=== PATIENT | male | born 1960 | race Caucasian/White ===

== ENCOUNTER 2018-08-07 08:31 | Observation (INO) | payer BC, OTHER ==
[~2018-08-07] VITALS: Ht 182.9 cm; Wt 125.2 kg
[~2018-08-07 08:31] MED LIST: INDOMETHACIN PO; LISINOPRIL PO
[2018-08-07] MEDS ORDERED: SODIUM CHLORIDE 0.9% 1000ML 1,000 ML IV STA (09:03)
[2018-08-07] MEDS ORDERED: ENOXAPARIN SODIUM INJ 100 MG/ML SYR SC STA (09:13)
[2018-08-07] MEDS ORDERED: DILTIAZEM HCL 5 MG/ML 5 ML VIAL IV ONE (09:15)
[2018-08-07] MEDS ORDERED: ASPIRIN 81 MG CHEW TAB PO ONE (09:15)
[2018-08-07] MEDS ORDERED: DILTIAZEM HCL VIAL 5 ML ONE (09:17)
[2018-08-07 09:43] LABS: BASOPHILS # (AUTO) 0.1 (0.0-0.1); BASOPHILS % 0.5 % (0.0-1.0); EOSINOPHILS # (AUTO) 0.4 (0.0-0.4); EOSINOPHILS % 3.4 % (0.0-6.0); HEMATOCRIT 45.7 % (38.2-49.6); HEMOGLOBIN 15.5 g/dL (14.0-18.0); LYMPHOCYTES # (AUTO) 4.6 (1.0-3.2); LYMPHOCYTES % 38.1 % (18.0-39.1); MEAN CORPUSCULAR HEMOGLOBIN 33.2 pg (28-32); MEAN CORPUSCULAR HGB CONC 33.9 g/dL (31-35); MEAN CORPUSCULAR VOLUME 97.9 fL (81-99); MONOCYTES # (AUTO) 0.6 (0.2-0.8); MONOCYTES % 4.6 % (4.4-11.3); NEUTROPHILS # (AUTO) 6.4 (2.1-6.9); NEUTROPHILS % 52.9 % (38.7-80.0); PLATELET COUNT 192 x10e3/uL (140-360); RED BLOOD COUNT 4.67 x10e6/uL (4.3-5.7); RED CELL DISTRIBUTION WIDTH 12.9 % (11.7-14.4)
[2018-08-07 10:01] LABS: INR 1.08; PROTHROMBIN TIME 13.2 seconds (11.9-14.5)
[2018-08-07 10:02] LABS: PARTIAL THROMBOPLASTIN TIME 27.6 seconds (23.8-35.5)
[2018-08-07 10:04] LABS: ALANINE AMINOTRANSFERASE 21 IU/L (0-55); ALBUMIN 3.6 g/dL (3.5-5.0); ALBUMIN/GLOBULIN RATIO 1.3 (0.8-2.0); ALKALINE PHOSPHATASE 65 IU/L (40-150); BLOOD UREA NITROGEN 20 mg/dL (7-26); BUN/CREATININE RATIO 17 (6-25); CARBON DIOXIDE 22 mmol/L (22-29); CHLORIDE 108 mmol/L (98-107); CREATINE KINASE 98 IU/L (30-200); CREATININE, SERUM 1.17 mg/dL (0.72-1.25); EST GLOMERULAR FILTRATION RATE > 60 ML/MIN (60-); GLUCOSE 122 mg/dL (74-118); SODIUM 140 mmol/L (136-145)
[2018-08-07 10:24] LABS: THYROID STIMULATING HORMONE 1.301 uIU/mL (0.350-4.940)
--- NOTE | 2018-08-07 11:35 | Diagnostic Imaging Report ---
Examination: Single AP view of the chest. COMPARISON: None. INDICATION: Elevated heart rate, shortness of breath IMPRESSION: 1. Lines and Tubes: None 2. Lungs are grossly clear. No consolidation or effusion. 3. Cardiomediastinal silhouette is normal. Pulmonary vasculature is normal. 4. No acute bony abnormalities. Signed by: Dr. Sergio Villatoro M.D. on 08/07/2018 11:31 AM
--- NOTE | 2018-08-07 13:01 | Diagnostic Imaging Report ---
EXAMINATION: CT of the chest with contrast, PE protocol. TECHNIQUE: Spiral CT images of the chest were performed from the lung apices through the level of the adrenal glands after the IV administration of cc of Omnipaque 300. Thin section reconstructions were obtained with special concentration on the pulmonary arteries. Coronal and sagittal reformatted images were obtained. COMPARISON: Portable chest 08/07/2018 CLINICAL HISTORY:-Heart rate, shortness of breath DISCUSSION: Exam available for interpretation at 13:00 hours Lungs: No filling defects are identified in the main, right or left pulmonary arteries to their segmental and subsegmental levels, to suggest pulmonary embolism. No consolidation, pulmonary masses or nodules. Linear subsegmental atelectasis versus scarring in the lingula (series 2, image 88 sagittal image 127). Airways: Airways are clear, without other bronchial lesions Pleura: <There is no evidence of pleural effusion or pneumothorax.> Heart and mediastinum: Thyroid is unremarkable. Mild cardiomegaly. Atherosclerotic calcification of the coronary arteries and thoracic aorta. The aorta is nonaneurysmal. Main pulmonary artery is normal in caliber. Lymph nodes: No mediastinal, hilar or axillary adenopathy. Abdomen: The visualized parts of the upper abdomen show unremarkable liver, spleen, pancreas, adrenal glands and kidneys. Bones and soft tissues: No aggressive lytic lesions. Degenerative disc changes in the thoracic spine. Soft tissues are unremarkable. IMPRESSION: 1. No CT evidence of pulmonary embolism. 2. Linear subsegmental atelectasis versus scarring in the lingula. No consolidation, masses or effusion. Signed by: Dr. Sergio Villatoro M.D. on 08/07/2018 12:58 PM
[2018-08-07] MEDS ORDERED: FAMOTIDINE 20 MG TAB PO SCH (15:00)
[2018-08-07] MEDS ORDERED: DILTIAZEM HCL 5 MG/ML 5 ML VIAL IV PRN (15:00)
[2018-08-07] MEDS ORDERED: ONDANSETRON HCL INJ 2 MG/ML VIAL IV PRN (15:00)
[2018-08-07] MEDS ORDERED: AMIODARONE HCL 100 ML IV ONE (15:51)
[2018-08-07] MEDS ORDERED: AMIODARONE 900MG 500 ML IV ONE (15:51)
[2018-08-07] MEDS ORDERED: AMIODARONE HCL 900 MG in DEXTROSE 5% 500ML 500 ML IV ONE (16:00)
[2018-08-07] MEDS ORDERED: AMIODARONE HCL 150MG 100 ML IV ONE (16:00)
[2018-08-07 16:09] LABS: CHOL/HDL RATIO 4.7 (3.9-4.7)
[2018-08-07 16:13] LABS: FREE THYROXINE INDEX 2.3297 (1.4-3.8)
[2018-08-07] MEDS ORDERED: IOPAMIDOL 370 MG/ML 200 ML INFUS..BTL INJ ONE (16:21)
[2018-08-07] MEDS ORDERED: SODIUM CHLORIDE 0.9% 50ML 50 ML ONE (16:21)
[2018-08-07] MEDS: APIXABAN 5 MG TABLET PO SCH (16:40)
[2018-08-07 17:36] LABS: CREATINE KINASE MB 1.7 ng/mL (0-5.0)
--- NOTE | 2018-08-07 20:27 | History and Physical ---
This is a 66-year-old gentleman with a history of high heart rate. HISTORY OF PRESENT ILLNESS: This is Mr. Jackson, who came to his primary care physician yesterday with a heart rate of 120 with AFib. Patient was referred to go to the emergency room, but he did not go, he had to do some errands. Came in today with heart rate of 160 and was admitted to the hospital, was started on amiodarone and cardiology consult was done. The patient has never had several symptoms before. PAST MEDICAL HISTORY: History of hypertension. SURGICAL HISTORY: History of back surgeries, meniscal surgeries, knee surgeries, and a traumatic abdominal laparotomy. MEDICATION: He only takes lisinopril. ALLERGIES: NO KNOWN ALLERGIES. SOCIAL HISTORY: No recent travel, no EtOH, no IV drug abuse. Never a smoker. REVIEW OF SYSTEMS: Negative for chest pain. No shortness of breath. Positive for palpitation. No nausea, vomiting, diarrhea, no constipation, no rectal bleeding, no hematochezia, no hematemesis. No diplopia, no blurry vision. EXAMINATION GENERAL: Patient is alert and oriented times 2. HEENT: Normocephalic, atraumatic. At this time, he is on an amiodarone drip. VITALS: Heart rate is about 181. CVS: S1 and S2 regular. ABDOMEN: Nontender, nondistended. EXTREMITIES: No clubbing, no cyanosis, no edema. Positive for scar on the left upper quadrant. LABORATORY VALUES: Initial white count is 12,000. Chemistries, sodium is 140, BUN of 20, creatinine of 1.17, glucose 122. BNP is 119. TSH is 1.30. LDL was 148. IMAGING STUDIES: CT of the chest was done, which shows no CT evidence of pulmonary embolism, linear subsegmental atelectasis and chest x-ray was also normal. ASSESSMENT: Atrial fibrillation with rapid ventricular response. The patient is on amiodarone drip. Will continue monitor. He has been started on apixaban. Rate control has been achieved. Possibly will change into beta-blockade. Thyroid has been normal. Further recommendation per clinical course. Cardiology has been consulted and will continue monitor the patient. Job#: [id number] CQ
[2018-08-07] MEDS ORDERED: ENOXAPARIN SODIUM INJ 100 MG/ML SYR SC SCH (21:30)
--- NOTE | 2018-08-07 22:44 | Consultation ---
DATE OF CONSULTATION: August 07, 2018 INDICATION: Atrial flutter. Mr. Jackson is a 58-year-old gentleman without any medical problems besides hypertension, who comes in complaining of fast heart rate and palpitation. She was found to be in atrial flutter at the time of admission, heart rate of 154. He was given Cardizem intravenously with reduction of his heart rate to 104. He continues to remain in atrial flutter. He denies any chest pain or shortness of breath. PAST MEDICAL HISTORY: Hypertension. SOCIAL HISTORY: Patient smokes approximately 1/2 pack of tobacco cigarettes a day. DRUG ALLERGIES: INCLUDE, PLASTIC TAPE, CODEINE, AND LATEX. HOME MEDICATION: Lisinopril. REVIEW OF SYSTEMS: Negative except as dictated in the history of present illness. PHYSICAL EXAMINATION VITALS: Afebrile. Heart rate 83. Blood pressure 113/74. O2 sats 98%. CARDIOVASCULAR: Irregular rhythm. Systolic murmur. LUNGS: Clear to auscultation bilaterally. ABDOMEN: Soft, mildly distended, and 1+ edema. Pedal pulses are 2+. WBC count 12,000, hemoglobin 15.5. Serum creatinine is normal. BNP is 1.9. Cardiac enzymes are negative. TSH is 1.3. Chest CT shows no acute abnormality. ASSESSMENT: Atrial flutter with rapid ventricular response. RECOMMENDATION: Attempt for chemical cardioversion with intravenous amiodarone, as well as oral calcium channel porter, anticoagulation with Eliquis 5 mg twice daily. Echocardiogram has been obtained. Patient should be maintained on telemetry for the next 24 hours. Following which, he may be discharged with close followup in the office and definitive therapy for his atrial flutter. I thank Dr. Forrester for this consultation. Job#: [id number]
[2018-08-08 05:06] LABS: BASOPHILS # (AUTO) 0.1 (0.0-0.1); BASOPHILS % 0.6 % (0.0-1.0); EOSINOPHILS # (AUTO) 0.4 (0.0-0.4); EOSINOPHILS % 3.7 % (0.0-6.0); HEMATOCRIT 40.5 % (38.2-49.6); HEMOGLOBIN 13.6 g/dL (14.0-18.0); LYMPHOCYTES # (AUTO) 4.2 (1.0-3.2); LYMPHOCYTES % 39.2 % (18.0-39.1); MEAN CORPUSCULAR HEMOGLOBIN 32.9 pg (28-32); MEAN CORPUSCULAR HGB CONC 33.6 g/dL (31-35); MEAN CORPUSCULAR VOLUME 98.1 fL (81-99); MONOCYTES # (AUTO) 0.6 (0.2-0.8); MONOCYTES % 5.4 % (4.4-11.3); NEUTROPHILS # (AUTO) 5.5 (2.1-6.9); NEUTROPHILS % 50.7 % (38.7-80.0); PLATELET COUNT 85 x10e3/uL (140-360); RED BLOOD COUNT 4.13 x10e6/uL (4.3-5.7)
[2018-08-08 05:29] LABS: ANION GAP 11.5 mmol/L (8-16); BLOOD UREA NITROGEN 16 mg/dL (7-26); BUN/CREATININE RATIO 15 (6-25); CALCIUM 8.2 mg/dL (8.4-10.2); CARBON DIOXIDE 20 mmol/L (22-29); CHLORIDE 111 mmol/L (98-107); CHOL/HDL RATIO 4.9 (3.9-4.7); CHOLESTEROL 185 MD/DL (0-199); CREATININE, SERUM 1.05 mg/dL (0.72-1.25); EST GLOMERULAR FILTRATION RATE > 60 ML/MIN (60-); GLUCOSE 133 mg/dL (74-118); HDL CHOLESTEROL 38 MG/DL (40-60); LDL CHOLESTEROL 126 MG/DL (60-130); MAGNESIUM 2.3 MG/DL (1.3-2.1); POTASSIUM 4.5 mmol/L (3.5-5.1); SODIUM 138 mmol/L (136-145); TRIGLYCERIDES 103 MG/DL (0-149)
[2018-08-08] MEDS: APIXABAN 5 MG TABLET PO SCH (08:42)
[2018-08-08] MEDS ORDERED: DILTIAZEM HCL 120 MG CAP CD PO SCH ×2 (09:00)
[2018-08-08] MEDS ORDERED: FAMOTIDINE 20 MG TAB PO SCH (09:00)
[2018-08-08] MEDS ORDERED: ASPIRIN 81 MG ENTERIC COATED PO SCH (09:00)
[2018-08-08 09:23] LABS: CLARITY,URINE CLEAR (CLEAR); COLOR,URINE YELLOW (YELLOW)
[2018-08-08 09:24] LABS: BILIRUBIN,URINE NEGATIVE (NEGATIVE); KETONES,URINE NEGATIVE (NEGATIVE); LEUKOCYTE ESTERASE ,URINE NEGATIVE (NEGATIVE); NITRITE,URINE NEGATIVE (NEGATIVE); PROTEIN,URINE DIPSTICK NEGATIVE (NEGATIVE); URINE UROBILINOGEN 0.2 mg/dL (0.2 - 1)
[2018-08-08 09:37] VITALS: BP 124/77
[2018-08-08 09:44] LABS: EPITHELIAL CELLS,URINE RARE /LPF; MUCUS,URINE MODERATE (RARE); RBC,URINE 0-5 /HPF (0-5); WBC,URINE (MAN) 0-5 /HPF (0-5)
--- NOTE | 2018-08-08 09:53 | Progress Note ---
DATE: August 08, 2018 CARDIOLOGY PROGRESS NOTE Mr. Jackson feels well. He denies any chest pain or shortness of breath. He is laying comfortably in bed in sinus rhythm. PHYSICAL EXAMINATION VITAL SIGNS: Afebrile, heart rate 71, blood pressure 123/74, O2 sat is 97%. CARDIOVASCULAR: Regular rhythm. No murmurs or gallops. LUNGS: Clear to auscultation bilaterally. ABDOMEN: Soft. Bowel sounds heard adequately. Telemetry shows sinus rhythm. CARDIOVASCULAR MEDICATIONS: Reviewed. LABS: Reviewed. ASSESSMENT: Atrial flutter with conversion to sinus rhythm. PLAN: The patient is stable for discharge from a cardiac standpoint. He will be on apixaban 5 mg b.i.d., amiodarone 200 mg b.i.d. and Cardizem CD 120 mg a day. He will follow up with me in the office in the next 1-[address] Early for this consultation. Job#: [id number] SD
== END 2018-08-08 09:50 | disposition home or self-care (01) ==
LOC: ER 08:31 → ERHOLD 16:07 → UNDOADMOB 16:07 → ERHOLD 16:29
PROVIDERS: ADMIT Internal Medicine; ATTEND Internal Medicine
DX: I48.92 Unspecified atrial flutter (principal); R53.1 Weakness; Z91.040 Latex allergy status; I12.9 Hypertensive chronic kidney disease with stage 1 through stage 4 chronic kidney disease, or unspecified chronic kidney disease; Z88.5 Allergy status to narcotic agent; Z91.048 Other nonmedicinal substance allergy status; N18.9 Chronic kidney disease, unspecified
CPT/HCPCS: 36415; 71045; 71260; 80048; 80053; 80061; 81001; 82550; 82553; 83735; 83880; 84436; 84443; 84479; 84484; 85025; 85379; 85610; 85730; 87086; 93005; 99284; J1650; J7030; J7060; Q9967; G0378

== ENCOUNTER 2019-03-30 14:04 | Emergency (ER) | payer BC, OTHER ==
[~2019-03-30] VITALS: Ht 182.9 cm; Wt 125.2 kg
--- OUTSIDE RECORDS SUMMARY | 2019-03-30 14:08 | XMS REPORT ---
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 Allergies, Adverse Reactions, Alerts Allergy Name Allergy Type Status Severity Reaction(s) Onset Date Inactive Date Treating Clinician Comments codeine DA Active MO 2018-09-16 00:00:00 codeine DA Active MO 2018-09-14 00:00:00 adhesive tape DA Active [place] 2018-09-14 00:00:00 codeine DA Active U 2012-09-07 00:00:00 Medications This patient has no known medications. Results Test Description Test Time Test Comments Text Results Atomic Results Result Comments CT CHEST W 2018-08-07 12:51:00 [place] [id number] Patient Name: HANNA SALGADO MR #: [id number] : 1960 Age/Sex: 58/M Req #: [id number] Adm Physician: Ordered by: JOSE GARDNER MD Report #: [id number] Location: ER Room/Bed: Procedure: [id number] CT/CT CHEST W Exam Date: 08/07/18 Exam Time: 1151 REPORT STATUS: Signed EXAMINATION: CT of the chest with contrast, PE protocol. TECHNIQUE: Spiral CT images of the chest were performed from the lung apices through the level of the adrenal glands after the IV administration of cc of Omnipaque 300. Thin section reconstructions were obtained with special concentration on the pulmonary arteries. Coronal and sagittal reformatted images were obtained. COMPARISON: Portable chest 08/07/2018 CLINICAL HISTORY:-Heart rate, shortness of breath DISCUSSION: Exam available for interpretation at 13:00 hours Lungs: No filling defects are identified in the main, right or left pulmonary arteries to their segmental and subsegmental levels, to suggest pulmonary embolism. No consolidation, pulmonary masses or nodules. Linear subsegmental atelectasis versus scarring in the lingula (series 2, image 88 sagittal image 127). Airways: Airways are clear, without other bronchial lesions Pleura: <There is no evidence of pleural effusion or pneumothorax.> Heart and mediastinum: Thyroid is unremarkable. Mild cardiomegaly. Atherosclerotic calcification of the coronary arteries and thoracic aorta. The aorta is nonaneurysmal. Main pulmonary artery is normal in caliber. Lymph nodes: No mediastinal, hilar or axillary adenopathy. Abdomen: The visualized parts of the upper abdomen show unremarkable liver, spleen, pancreas, adrenal glands and kidneys. Bones and soft tissues: No aggressive lytic lesions. Degenerative disc changes in the thoracic spine. Soft tissues are unremarkable. IMPRESSION: 1. No CT evidence of pulmonary embolism. 2. Linear subsegmental atelectasis versus scarring in the lingula. No consolidation, masses or effusion. Signed by: Dr. Gary Villatoro M.D. on 08/07/2018 12:58 PM Dictated By: GARY VILLATORO MD [id number] Transcribed By: REJI on 08/07/18 1258 COPY TO: JOSE GARDNER MD CHEST SINGLE (PORTABLE) 2018-08-07 11:31:00 [place] [address] Patient Name: HANNA SALGADO MR #: [id number] : 1960 Age/Sex: 58/M Req #: [id number] Adm Physician: Ordered by: JOSE GARDNER MD Report #: [id number] Location: ER Room/Bed: Procedure: [id number] DX/CHEST SINGLE (PORTABLE) Exam Date: 08/07/18 Exam Time: 932 REPORT STATUS: Signed Examination: Single AP view of the chest. COMPARISON: None. INDICATION: Elevated heart rate, shortness of breath IMPRESSION: 1. Lines and Tubes: None 2. Lungs are grossly clear. No consolidation or effusion. 3. Cardiomediastinal silhouette is normal. Pulmonary vasculature is normal. 4. No acute bony abnormalities. Signed by: Dr. Gary Villatoro M.D. on 08/07/2018 11:31 AM Dictated By: GARY VILLATORO MD 1131 Transcribed By: REJI on 08/07/18 1131 COPY TO: JOSE GARDNER MD
--- OUTSIDE RECORDS SUMMARY | 2019-03-30 14:08 | XMS REPORT | Continuity of Care Document ---
Author Author [facility] Address Unknown Phone Unavailable Problems Problem Status Onset Date Classification Date Reported Comments Source Medications Medication Details Route Status Patient Instructions Ordering Provider Order Date Source Indomethacin , Oral As Needed Active 08/07/2018 [facility] Lisinopril 10 Daily Active [facility] Allergies, Adverse Reactions, Alerts Substance Category Reaction Severity Reaction type Status Date Reported Comments Source PLASTIC TAPE RASH Mild Allergy to Substance Active 08/21/2015 [facility] Codeine "FEELS SPACEY' Unknown Allergy to Substance Active 08/07/2018 [facility] Latex RASH Unknown Allergy to Substance Active 08/07/2018 [facility] Immunizations Immunization Date Given Site Status Last Updated Comments Source Results Order Name Results Value Reference Range Date Interpretation Comments Source Automated urine sediment leukocyte count by microscopy (number/high power field) Automated urine sediment leukocyte count by microscopy (number/high power field) null 0 - 5 08/08/2018 [facility] Bacteria detection in urine sediment by light microscopy Bacteria detection in urine sediment by light microscopy NONE NONE 08/08/2018 [facility] Epithelial cells detection in urine sediment by light microscopy Epithelial cells detection in urine sediment by light microscopy RARE NONE 08/08/2018 [facility] Erythrocytes detection in urine sediment by light microscopy Erythrocytes detection in urine sediment by light microscopy null 0 - 5 08/08/2018 [facility] Mucus detection in urine sediment by light microscopy Mucus detection in urine sediment by light microscopy MODERATE RARE 08/08/2018 [facility] Specific gravity of Urine by Test strip Specific gravity of Urine by Test strip 1.030 1.010 - 1.025 08/08/2018 [facility] Urine clarity Urine clarity CLEAR CLEAR 08/08/2018 [facility] Urine color determination Urine color determination YELLOW YELLOW 08/08/2018 [facility] Urine erythrocytes detection Urine erythrocytes detection TRACE NEGATIVE 08/08/2018 [facility] Urine glucose detection Urine glucose detection NEGATIVE NEGATIVE 08/08/2018 [facility] Urine ketones detection by automated test strip Urine ketones detection by automated test strip NEGATIVE NEGATIVE 08/08/2018 [facility] Urine leukocyte esterase detection by dipstick Urine leukocyte esterase detection by dipstick NEGATIVE NEGATIVE 08/08/2018 [facility] Urine nitrite detection Urine nitrite detection NEGATIVE NEGATIVE 08/08/2018 [facility] Urine pH measurement by automated test strip Urine pH measurement by automated test strip 6 5 - 7 08/08/2018 [facility] Urine protein measurement by test strip (mass/volume) Urine protein measurement by test strip (mass/volume) NEGATIVE NEGATIVE 08/08/2018 [facility] Urine total bilirubin measurement (mass/volume) Urine total bilirubin measurement (mass/volume) NEGATIVE NEGATIVE 08/08/2018 [facility] Urine urobilinogen measurement by test strip (mass/volume) Urine urobilinogen measurement by test strip (mass/volume) 0.2 0.2 - 1 08/08/2018 [facility] Automated blood basophil count (count/volume) Automated blood basophil count (count/volume) 0.1 0.0 - 0.1 08/08/2018 [facility] Automated blood basophil count as percentage of total leukocytes Automated blood basophil count as percentage of total leukocytes 0.6 0.0 - 1.0 08/08/2018 [facility] Automated blood eosinophil count Automated blood eosinophil count 0.4 0.0 - 0.4 08/08/2018 [facility] Automated blood eosinophil count as percentage of total leukocytes Automated blood eosinophil count as percentage of total leukocytes 3.7 0.0 - 6.0 08/08/2018 [facility] Automated blood hematocrit (volume fraction) Automated blood hematocrit (volume fraction) 40.5 38.2 - 49.6 08/08/2018 [facility] Automated blood lymphocyte count as percentage ot total leukocytes Automated blood lymphocyte count as percentage ot total leukocytes 39.2 18.0 - 39.1 08/08/2018 [facility] Automated blood monocyte count as percentage of total leukocytes Automated blood monocyte count as percentage of total leukocytes 5.4 4.4 - 11.3 08/08/2018 [facility] Automated blood neutrophil count Automated blood neutrophil count 5.5 2.1 - 6.9 08/08/2018 [facility] Automated blood platelet count (count/volume) Automated blood platelet count (count/volume) 85 140 - 360 08/08/2018 [facility] Automated blood segmented neutrophil count as percentage of total leukocytes Automated blood segmented neutrophil count as percentage of total leukocytes 50.7 38.7 - 80.0 08/08/2018 [facility] Automated erythrocyte mean corpuscular hemoglobin (mass per erythrocyte) Automated erythrocyte mean corpuscular hemoglobin (mass per erythrocyte) 32.9 28 - 32 08/08/2018 [facility] Automated erythrocyte mean corpuscular hemoglobin concentration measurement (mass/volume) Automated erythrocyte mean corpuscular hemoglobin concentration measurement (mass/volume) 33.6 31 - 35 08/08/2018 [facility] Automated erythrocyte mean corpuscular volume Automated erythrocyte mean corpuscular volume 98.1 81 - 99 08/08/2018 [facility] Blood erythrocytes automated count (number/volume) Blood erythrocytes automated count (number/volume) 4.13 4.3 - 5.7 08/08/2018 [facility] Blood hemoglobin measurement (moles/volume) Blood hemoglobin measurement (moles/volume) 13.6 14.0 - 18.0 08/08/2018 [facility] Blood leukocytes automated count (number/volume) Blood leukocytes automated count (number/volume) 10.83 4.8 - 10.8 08/08/2018 [facility] Blood lymphocytes count (number/volume) Blood lymphocytes count (number/volume) 4.2 1.0 - 3.2 08/08/2018 [facility] Blood monocytes automated count (number/volume) Blood monocytes automated count (number/volume) 0.6 0.2 - 0.8 08/08/2018 [facility] Estimated glomerular filtration rate (GFR) determination Estimated glomerular filtration rate (GFR) determination null 60 08/08/2018 [facility] Glucose measurement Glucose measurement 133 74 - 118 08/08/2018 [facility] Serum or plasma anion gap Serum or plasma anion gap 11.5 8 - 16 08/08/2018 [facility] Serum or plasma calcium measurement (mass/volume) Serum or plasma calcium measurement (mass/volume) 8.2 8.4 - 10.2 08/08/2018 [facility] Serum or plasma carbon dioxide, total measurement (moles/volume) Serum or plasma carbon dioxide, total measurement (moles/volume) 20 22 - 29 08/08/2018 [facility] Serum or plasma chloride measurement (moles/volume) Serum or plasma chloride measurement (moles/volume) 111 98 - 107 08/08/2018 [facility] Serum or plasma cholesterol in HDL measurement (mass/volume) Serum or plasma cholesterol in HDL measurement (mass/volume) 38 40 - 60 08/08/2018 [facility] Serum or plasma cholesterol in LDL measurement (mass/volume) Serum or plasma cholesterol in LDL measurement (mass/volume) 126 60 - 130 08/08/2018 [facility] Serum or plasma cholesterol measurement (mass/volume) Serum or plasma cholesterol measurement (mass/volume) 185 0 - 199 08/08/2018 [facility] Serum or plasma creatinine measurement (mass/volume) Serum or plasma creatinine measurement (mass/volume) 1.05 0.72 - 1.25 08/08/2018 [facility] Serum or plasma magnesium measurement (mass/volume) Serum or plasma magnesium measurement (mass/volume) 2.3 1.3 - 2.1 08/08/2018 [facility] Serum or plasma potassium measurement (moles/volume) Serum or plasma potassium measurement (moles/volume) 4.5 3.5 - 5.1 08/08/2018 [facility] Serum or plasma sodium measurement (moles/volume) Serum or plasma sodium measurement (moles/volume) 138 136 - 145 08/08/2018 [facility] Serum or plasma total cholesterol/cholesterol in HDL mass ratio Serum or plasma total cholesterol/cholesterol in HDL mass ratio 4.9 3.9 - 4.7 08/08/2018 [facility] Serum or plasma triglyceride measurement (mass/volume) Serum or plasma triglyceride measurement (mass/volume) 103 0 - 149 08/08/2018 [facility] Serum or plasma urea nitrogen measurement (mass/volume) Serum or plasma urea nitrogen measurement (mass/volume) 16 7 - 26 08/08/2018 [facility] Serum or plasma urea nitrogen/creatinine mass ratio Serum or plasma urea nitrogen/creatinine mass ratio 15 6 - 25 08/08/2018 [facility] Red Cell Distribution Width 13.0 11.7 - 14.4 08/08/2018 [facility] IM GRANULOCYTES % 0.4 0.0 - 1.0 08/08/2018 [facility] Absolute Immature Granulocyte (auto 0.04 0 - 0.1 08/08/2018 [facility] Serum or plasma creatine kinase MB measurement (mass/volume) Serum or plasma creatine kinase MB measurement (mass/volume) 1.00 0 - 5.0 08/08/2018 [facility] Serum or plasma creatine kinase measurement (enzymatic activity/volume) Serum or plasma creatine kinase measurement (enzymatic activity/volume) 41 30 - 200 08/08/2018 [facility] Troponin I measurement by highly sensitive enzyme immunoassay Troponin I measurement by highly sensitive enzyme immunoassay 0.001 0 - 0.300 08/08/2018 [facility] Activated partial thromboplastin time (aPTT) in platelet poor plasma bycoagulation assay Activated partial thromboplastin time (aPTT) in platelet poor plasma bycoagulation assay 27.6 23.8 - 35.5 08/07/2018 [facility] Fibrin D-dimer DDU measurement in platelet poor plasma (mass/volume) Fibrin D-dimer DDU measurement in platelet poor plasma (mass/volume) 0.69 0.00 - 0.45 08/07/2018 [facility] Free thyroxine index Free thyroxine index 2.3297 1.4 - 3.8 08/07/2018 [facility] INR in Platelet poor plasma by Coagulation assay INR in Platelet poor plasma by Coagulation assay 1.08 08/07/2018 [facility] Plasma globulin measurement (mass/volume) Plasma globulin measurement (mass/volume) 2.7 2.3 - 3.5 08/07/2018 [facility] Prothrombin time (PT) in platelet poor plasma by coagulation assay Prothrombin time (PT) in platelet poor plasma by coagulation assay 13.2 11.9 - 14.5 08/07/2018 [facility] Serum or plasma alanine aminotransferase measurement (enzymatic activity/volume) Serum or plasma alanine aminotransferase measurement (enzymatic activity/volume) 21 0 - 55 08/07/2018 [facility] Serum or plasma albumin measurement (mass/volume) Serum or plasma albumin measurement (mass/volume) 3.6 3.5 - 5.0 08/07/2018 [facility] Serum or plasma albumin/globulin mass ratio Serum or plasma albumin/globulin mass ratio 1.3 0.8 - 2.0 08/07/2018 [facility] Serum or plasma alkaline phosphatase measurement (enzymatic activity/volume) Serum or plasma alkaline phosphatase measurement (enzymatic activity/volume) 65 40 - 150 08/07/2018 [facility] Serum or plasma protein measurement (mass/volume) Serum or plasma protein measurement (mass/volume) 6.3 6.5 - 8.1 08/07/2018 [facility] Serum or plasma thyrotropin measurement by detection limit <=0.005 miu/l (units/volume) Serum or plasma thyrotropin measurement by detection limit <=0.005 miu/l (units/volume) 1.301 0.350 - 4.940 08/07/2018 [facility] Serum or plasma thyroxine (T4) measurement (mass/volume) Serum or plasma thyroxine (T4) measurement (mass/volume) 7.41 4.5 - 10.9 08/07/2018 [facility] Serum or plasma total bilirubin measurement (mass/volume) Serum or plasma total bilirubin measurement (mass/volume) 1.0 0.2 - 1.2 08/07/2018 [facility] Serum or plasma triiodothyronine resin uptake (T3RU) Serum or plasma triiodothyronine resin uptake (T3RU) 31.44 22.5 - 37.0 08/07/2018 [facility] Aspartate Amino Transf (AST/SGOT) 20 5 - 34 08/07/2018 [facility] B-Type Natriuretic Peptide 119.3 0 - 100 08/07/2018 [facility] Vital Signs Vital Sign Value Date Comments Source Encounters Location Location Details Encounter Type Encounter Number Reason For Visit Attending Provider ADM Date DC Date Status Source Discharged Inpatient (obs) [id number] ROBBIE KITCHEN MD 08/07/2018 08/08/2018 [facility] Procedures Procedure Code Date Perfomer Comments Source Computed tomography of chest with contrast [id number] 08/07/2018 [facility]
[2019-03-30] MEDS ORDERED: HYDROMORPHONE 1MG/1ML INJ IV STA (14:30)
[2019-03-30] MEDS ORDERED: ONDANSETRON HCL INJ 2MG/ML 2ML 2 MG/ML VIAL IV STA (14:30)
[2019-03-30] MEDS ORDERED: METHYLPREDNISOLONE SOD SUCC 125 MG/2ML VIAL IV STA (14:30)
[2019-03-30] MEDS ORDERED: HYDROMORPHONE 2MG/ML 2 MG/ML ML IV ONE (14:45)
--- NOTE | 2019-03-30 17:13 | Diagnostic Imaging Report ---
History: Sharp pain down left leg Comparison studies: None Technique: Axial images were obtained from T12 inferior endplate through the. Coronal and sagittal images reconstructed from the axial data. Intravenous contrast: None Dose modulation, iterative reconstruction, and/or weight based adjustment of the mA/kV was utilized to reduce the radiation dose to as low as reasonably achievable. Findings: Number of non-rib bearing vertebral bodies: 5 Alignment: Normal lordosis. No scoliosis. Soft tissues: No paraspinal abnormalities. Atherosclerotic calcifications of the abdominal aorta and branches Paraspinal muscles: Findings infiltration of the paraspinal musculature from C4 through S1 secondary to moderate atrophy. Surgical changes: Posterior fusion with transpedicular screws and interlocking rods at L4 and L5 with intervertebral spacer and laminectomy changes Vertebrae: No fractures, infection or neoplasm. Degenerative changes: L1-L2: Patent canal and foramina L2-L3: Patent canal and foramina L3-L4: Mild disc degeneration with decreased intervertebral space and mild endplate sclerosis. Bulge and mild facet hypertrophy results in moderate canal stenosis, moderate right and mild left foraminal narrowing L4-L5: Laminectomy changes. Intervertebral spacer at the left central posterior intervertebral disc resulting in thinning artifact limiting evaluation. No central canal stenosis. Narrowing of the left subarticular recess and moderate narrowing of the left neural foramen secondary to left subarticular and foraminal disc osteophyte complex. Mild right foraminal narrowing. L5-S1: Mild facet hypertrophy with patent canal, moderate right and severe left foraminal narrowing Sacroiliac joints: Mild degenerative changes given by anterior and sclerotic changes. IMPRESSION: 1. Degenerative narrowing of the left subarticular recesses at L4-5 and severe narrowing of the left foramen at L5-S1 with possible impingement of the descending and exiting L5 nerve root respectively. 2. Posterior fusion and laminectomies of the lower lumbar spine without complication. 3. No acute abnormality of the lumbar spine. Other degenerative changes as described above Signed by: DR Rodney Penaloza M.D. on 03/30/2019 5:09 PM
[2019-03-30 18:17] VITALS: BP 121/84
== END 2019-03-30 18:35 | disposition home or self-care (01) ==
LOC: ER 14:04
DX: M54.16 Radiculopathy, lumbar region (principal); M79.662 Pain in left lower leg; I10 Essential (primary) hypertension; M54.9 Dorsalgia, unspecified; I48.91 Unspecified atrial fibrillation; Z88.5 Allergy status to narcotic agent; Z91.040 Latex allergy status; Z98.890 Other specified postprocedural states
CPT/HCPCS: 72131; 99283; J1170; J2405; J2930

== ENCOUNTER 2024-11-11 10:06 | Inpatient (IN) | payer MEDICARE ==
[2024-11-11] VITALS (17 sets, daily range): BP systolic 90–134; BP diastolic 72–97; PULSE 33–148; RESP 16–35; TEMP 98–98.1; O2SAT 96–100
[~2024-11-11] VITALS: Ht 182.9 cm; Wt 115.9 kg
[2024-11-11] MEDS: SODIUM CHLORIDE 0.9% 1000ML 1,000 ML IV STA ×2 (10:51→12:35)
[2024-11-11] MEDS: DILTIAZEM HCL 5 MG/ML 5 ML VIAL IV STA (10:52)
[2024-11-11] MEDS: METOPROLOL TARTRATE INJ 1 MG/ML VIAL IV ONE ×2 (11:06→13:49)
[2024-11-11 11:29] LABS: BASOPHILS % 0.2 % (0.0-1.0); EOSINOPHILS # (AUTO) 0.1 (0.0-0.4); EOSINOPHILS % 0.3 % (0.0-6.0); HEMATOCRIT 50.6 % (38.2-49.6); HEMOGLOBIN 16.5 g/dL (14.0-18.0); LYMPHOCYTES # (AUTO) 1.8 (1.0-3.2); LYMPHOCYTES % 9.1 % (18.0-39.1); MEAN CORPUSCULAR HEMOGLOBIN 32.9 pg (28-32); MEAN CORPUSCULAR HGB CONC 32.6 g/dL (31-35); MEAN CORPUSCULAR VOLUME 100.8 fL (81-99); MONOCYTES # (AUTO) 0.7 (0.2-0.8); MONOCYTES % 3.5 % (4.4-11.3); NEUTROPHILS # (AUTO) 16.6 (2.1-6.9); NEUTROPHILS % 86.1 % (38.7-80.0); PLATELET COUNT 200 x10e3/uL (140-360); RED BLOOD COUNT 5.02 x10e6/uL (4.3-5.7); RED CELL DISTRIBUTION WIDTH 13.2 % (11.7-14.4); WHITE BLOOD COUNT 19.31 x10e3/uL (4.8-10.8)
[2024-11-11 11:38] LABS: INR 1.13; PROTHROMBIN TIME 15.2 seconds (11.9-14.5)
[2024-11-11 11:39] LABS: PARTIAL THROMBOPLASTIN TIME 32.5 seconds (23.8-35.5)
[2024-11-11 11:48] LABS: ALANINE AMINOTRANSFERASE 12 IU/L (0-55); ALBUMIN 3.1 g/dL (3.5-5.0); ALBUMIN/GLOBULIN RATIO 0.7 (0.8-2.0); ALKALINE PHOSPHATASE 93 IU/L (40-150); ANION GAP 19.3 mmol/L (8-16); BILIRUBIN,TOTAL 1.3 mg/dL (0.2-1.2); BLOOD UREA NITROGEN 31 mg/dL (7-26); BUN/CREATININE RATIO 19 (6-25); CALCIUM 9.9 mg/dL (8.4-10.2); CARBON DIOXIDE 20 mmol/L (22-29); CHLORIDE 99 mmol/L (98-107); CREATINE KINASE 57 IU/L (30-200); CREATININE, SERUM 1.62 mg/dL (0.72-1.25); EST GLOMERULAR FILTRATION RATE 47 ML/MIN (>=60); GLUCOSE 164 mg/dL (74-118); LIPASE 37 U/L (8-78); MAGNESIUM 2.2 MG/DL (1.3-2.1); POTASSIUM 4.3 mmol/L (3.5-5.1); SODIUM 134 mmol/L (136-145); TOTAL PROTEIN 7.8 g/dL (6.5-8.1)
[2024-11-11 12:07] LABS: TROPONIN I < 0.001 ng/mL (0-0.300)
[2024-11-11] MEDS: AMIODARONE HCL 150 MG/100 ML BAG IV ONE ×2 (12:36→17:28)
[2024-11-11] MEDS ORDERED: IOPAMIDOL 370 MG/ML 100 ML INFUS..BTL INJ ONE (12:47)
[2024-11-11] MEDS: ONDANSETRON HCL INJ 2MG/ML 2ML 2 MG/ML VIAL IV STA (13:13)
[2024-11-11] MEDS: SODIUM CHLORIDE 0.9% 1000ML 1,000 ML IV SCH (13:40)
[2024-11-11] MEDS: AMIODARONE 900MG 500 ML IV SCH (13:40)
[2024-11-11 14:20] LABS: BILIRUBIN,URINE SMALL (NEGATIVE); CLARITY,URINE SL CLOUDY (CLEAR); COLOR,URINE YELLOW (YELLOW); GLUCOSE, URINE NEGATIVE (NEGATIVE); KETONES,URINE 1+ (NEGATIVE); LEUKOCYTE ESTERASE ,URINE NEGATIVE (NEGATIVE); NITRITE,URINE NEGATIVE (NEGATIVE); PH,URINE 6 (5 - 7); PROTEIN,URINE DIPSTICK 2+ (NEGATIVE); URINE UROBILINOGEN 0.2 mg/dL (0.2 - 1)
[2024-11-11 14:23] LABS: AMORPHOUS SEDIMENT,URINE FEW (FEW); BACTERIA,URINE FEW /HPF; EPITHELIAL CELLS,URINE FEW /LPF; WBC,URINE (MAN) 0-5 /HPF (0-5)
[2024-11-11] MEDS: Morphine 2mg Syringe 2 MG/ML SYR IV PRN ×2 (15:40→20:25)
[2024-11-11] MEDS: METRONIDAZOLE 500MG/NS 100ML 100 ML IV SCH (15:59)
[2024-11-11] MEDS ORDERED: METOPROLOL TARTRATE INJ 1 MG/ML VIAL IV PRN (17:00)
[2024-11-11 17:28] LABS: BASOPHILS # (AUTO) 0.1 (0.0-0.1); BASOPHILS % 0.3 % (0.0-1.0); EOSINOPHILS # (AUTO) 0.1 (0.0-0.4); EOSINOPHILS % 0.5 % (0.0-6.0); HEMATOCRIT 44.2 % (38.2-49.6); HEMOGLOBIN 14.2 g/dL (14.0-18.0); LYMPHOCYTES # (AUTO) 2.1 (1.0-3.2); LYMPHOCYTES % 11.4 % (18.0-39.1); MEAN CORPUSCULAR HEMOGLOBIN 32.8 pg (28-32); MEAN CORPUSCULAR HGB CONC 32.1 g/dL (31-35); MEAN CORPUSCULAR VOLUME 102.1 fL (81-99); MONOCYTES # (AUTO) 0.8 (0.2-0.8); MONOCYTES % 4.5 % (4.4-11.3); NEUTROPHILS # (AUTO) 15.3 (2.1-6.9); NEUTROPHILS % 82.3 % (38.7-80.0); PLATELET COUNT 159 x10e3/uL (140-360); RED BLOOD COUNT 4.33 x10e6/uL (4.3-5.7); RED CELL DISTRIBUTION WIDTH 13.2 % (11.7-14.4); WHITE BLOOD COUNT 18.59 x10e3/uL (4.8-10.8)
[2024-11-11] MEDS: NOREPINEPHRINE 8 MG/D5W 250 ML 250 ML IV SCH (17:39)
[2024-11-11 17:44] LABS: ANION GAP 16.5 mmol/L (8-16); CREATININE, SERUM 1.14 mg/dL (0.72-1.25); POTASSIUM 4.5 mmol/L (3.5-5.1)
[2024-11-11 17:55] LABS: TROPONIN I 0.005 ng/mL (0-0.300)
[2024-11-12] VITALS (31 sets, daily range): BP systolic 118–146; BP diastolic 73–104; PULSE 66–86; RESP 10–30; TEMP 98.1–98.7; O2SAT 94–100
[2024-11-12 01:11] LABS: TROPONIN I 0.004 ng/mL (0-0.300)
[2024-11-12 01:14] LABS: ANION GAP 12.8 mmol/L (8-16); CREATININE, SERUM 0.82 mg/dL (0.72-1.25)
[2024-11-12 01:15] LABS: POTASSIUM 2.8 mmol/L (3.5-5.1)
[2024-11-12] MEDS: POTASSIUM CHLORIDE 20MEQ/100ML 200 ML IV ONE (02:01)
[2024-11-12] MEDS: POTASSIUM CHLORIDE 20MEQ/100ML 100 ML IV ONE (02:02)
[2024-11-12] MEDS: HYDROMORPHONE 1MG/1ML INJ IV PRN (05:08)
[2024-11-12] MEDS: AMIODARONE 900MG 500 ML IV ONE (05:51)
[2024-11-12 06:49] LABS: BASOPHILS % 0.3 % (0.0-1.0); EOSINOPHILS # (AUTO) 0.1 (0.0-0.4); EOSINOPHILS % 0.9 % (0.0-6.0); HEMATOCRIT 34.4 % (38.2-49.6); LYMPHOCYTES # (AUTO) 2.2 (1.0-3.2); LYMPHOCYTES % 15.4 % (18.0-39.1); MEAN CORPUSCULAR HEMOGLOBIN 32.8 pg (28-32); MEAN CORPUSCULAR VOLUME 102.7 fL (81-99); MONOCYTES # (AUTO) 0.7 (0.2-0.8); MONOCYTES % 4.8 % (4.4-11.3); NEUTROPHILS % 77.9 % (38.7-80.0); PLATELET COUNT 150 x10e3/uL (140-360); RED BLOOD COUNT 3.35 x10e6/uL (4.3-5.7); RED CELL DISTRIBUTION WIDTH 13.3 % (11.7-14.4); WHITE BLOOD COUNT 14.08 x10e3/uL (4.8-10.8)
[2024-11-12 07:00] LABS: ALBUMIN 2.1 g/dL (3.5-5.0); ALBUMIN/GLOBULIN RATIO 0.7 (0.8-2.0); ANION GAP 11.3 mmol/L (8-16); BILIRUBIN,TOTAL 0.8 mg/dL (0.2-1.2); CALCIUM 7.3 mg/dL (8.4-10.2); CREATININE, SERUM 0.93 mg/dL (0.72-1.25)
[2024-11-12 07:03] LABS: POTASSIUM 3.3 mmol/L (3.5-5.1)
[2024-11-12 07:05] LABS: TROPONIN I 0.007 ng/mL (0-0.300)
[2024-11-12] MEDS ORDERED: PROPOFOL IV EMULSION 10 MG/ML 20 ML VIAL ONE ×2 (09:22→10:25)
[2024-11-12] MEDS ORDERED: ROCURONIUM BROMIDE 1 ML IV ONE ×2 (09:22→10:56)
[2024-11-12] MEDS ORDERED: FENTANYL CITRATE/PF 100MCG/2 ML INJ ONE ×2 (09:22→10:30)
[2024-11-12] MEDS ORDERED: LIDOCAINE HCL 2% LOCAL INJ 5 ML SDV VIAL INJ ONE (09:22)
[2024-11-12 11:49] LABS: EOSINOPHILS % (MANUAL) 1 % (0-7); LYMPHOCYTES % (MANUAL) 15 % (19-48); MONOCYTES % (MANUAL) 3 % (3.4-9.0); NEUTROPHILS % (MANUAL) 80 % (40-74); REACTIVE LYMPHOCYTES 1
[2024-11-12 11:50] LABS: PLATELET ESTIMATE ADEQUATE; PLATELET MORPHOLOGY COMMENT NORMAL
[2024-11-12 11:51] LABS: RBC MORPHOLOGY COMMENT NORMAL
[2024-11-12] MEDS ORDERED: HYDROMORPHONE 2MG/ML ONE (12:05)
[2024-11-12] MEDS: IPRATROPIUM BROMIDE 0.02% 2.5 ML NEB NEB SCH (12:13)
[2024-11-12] MEDS ORDERED: ACETAMINOPHEN 1000 MG/100 ML 100 ML IV ONE (12:14)
[2024-11-12] MEDS ORDERED: ONDANSETRON HCL INJ 2MG/ML 2ML 2 MG/ML VIAL ONE (12:27)
[2024-11-12] MEDS ORDERED: SUGAMMADEX SODIUM 200 MG/2 ML VIAL IV ONE (12:27)
[2024-11-12] MEDS ORDERED: NALOXONE HCL INJ 0.4 MG/ML AMP IV PRN (12:45)
[2024-11-12] MEDS ORDERED: ACETAMINOPHEN 1000 MG/100 ML IV PRN (12:45)
[2024-11-12] MEDS ORDERED: ONDANSETRON HCL INJ 2MG/ML 2ML 2 MG/ML VIAL IV PRN (12:45)
[2024-11-12] MEDS: HYDROMORPHONE 0.2MG/ML-SOD CHL 30ML PCA SYRINGE IV PRN (17:36)
[2024-11-13] VITALS (29 sets, daily range): BP systolic 118–155; BP diastolic 72–115; PULSE 70–86; RESP 16–28; TEMP 97.9–98.6; O2SAT 92–99
[2024-11-13 06:54] LABS: BASOPHILS % 0.2 % (0.0-1.0); HEMATOCRIT 37.6 % (38.2-49.6); HEMOGLOBIN 12.1 g/dL (14.0-18.0); LYMPHOCYTES # (AUTO) 1.7 (1.0-3.2); LYMPHOCYTES % 10.5 % (18.0-39.1); MEAN CORPUSCULAR HEMOGLOBIN 32.7 pg (28-32); MEAN CORPUSCULAR HGB CONC 32.2 g/dL (31-35); MEAN CORPUSCULAR VOLUME 101.6 fL (81-99); MONOCYTES # (AUTO) 0.7 (0.2-0.8); MONOCYTES % 4.3 % (4.4-11.3); NEUTROPHILS # (AUTO) 13.5 (2.1-6.9); NEUTROPHILS % 84.3 % (38.7-80.0); PLATELET COUNT 185 x10e3/uL (140-360); RED CELL DISTRIBUTION WIDTH 13.3 % (11.7-14.4); WHITE BLOOD COUNT 16.07 x10e3/uL (4.8-10.8)
[2024-11-13 07:11] LABS: ALBUMIN 2.2 g/dL (3.5-5.0); ALBUMIN/GLOBULIN RATIO 0.6 (0.8-2.0); BILIRUBIN,TOTAL 0.5 mg/dL (0.2-1.2); CALCIUM 8.4 mg/dL (8.4-10.2); CREATININE, SERUM 0.91 mg/dL (0.72-1.25); MAGNESIUM 1.7 MG/DL (1.3-2.1); TOTAL PROTEIN 5.7 g/dL (6.5-8.1)
[2024-11-13 12:10] LABS: LYMPHOCYTES % (MANUAL) 8 % (19-48); MONOCYTES % (MANUAL) 6 % (3.4-9.0); NEUTROPHILS % (MANUAL) 84 % (40-74); PLATELET MORPHOLOGY COMMENT NORMAL; RBC MORPHOLOGY COMMENT NORMAL; REACTIVE LYMPHOCYTES 2
[2024-11-13 12:11] LABS: PLATELET ESTIMATE ADEQUATE
[2024-11-13] MEDS: AMIODARONE 900MG 900 MG in Premix Bag 1 BAG IV SCH (18:01)
[2024-11-13] MEDS: AMIODARONE 900MG 500 ML IV ONE (18:02)
[2024-11-14] VITALS (28 sets, daily range): BP systolic 129–162; BP diastolic 80–115; PULSE 58–81; RESP 17–26; TEMP 97.8–97.9; O2SAT 92–96
[2024-11-14 07:00] LABS: BASOPHILS % 0.3 % (0.0-1.0); EOSINOPHILS % 0.1 % (0.0-6.0); HEMATOCRIT 34.2 % (38.2-49.6); HEMOGLOBIN 11.5 g/dL (14.0-18.0); LYMPHOCYTES # (AUTO) 3.2 (1.0-3.2); LYMPHOCYTES % 21.2 % (18.0-39.1); MEAN CORPUSCULAR HEMOGLOBIN 32.9 pg (28-32); MEAN CORPUSCULAR HGB CONC 33.6 g/dL (31-35); MEAN CORPUSCULAR VOLUME 97.7 fL (81-99); MONOCYTES # (AUTO) 0.9 (0.2-0.8); MONOCYTES % 5.7 % (4.4-11.3); NEUTROPHILS # (AUTO) 10.9 (2.1-6.9); NEUTROPHILS % 71.4 % (38.7-80.0); PLATELET COUNT 220 x10e3/uL (140-360); RED CELL DISTRIBUTION WIDTH 13.3 % (11.7-14.4)
[2024-11-14 07:21] LABS: ALBUMIN 2.2 g/dL (3.5-5.0); ALBUMIN/GLOBULIN RATIO 0.7 (0.8-2.0); ANION GAP 11.3 mmol/L (8-16); BILIRUBIN,TOTAL 0.4 mg/dL (0.2-1.2); CREATININE, SERUM 0.83 mg/dL (0.72-1.25); MAGNESIUM 1.7 MG/DL (1.3-2.1); TOTAL PROTEIN 5.4 g/dL (6.5-8.1)
[2024-11-14 07:23] LABS: POTASSIUM 3.3 mmol/L (3.5-5.1)
[2024-11-14] MEDS: BISACODYL 10 MG SUPP PR ONE (08:03)
[2024-11-14 09:52] LABS: LYMPHOCYTES % (MANUAL) 14 % (19-48); MONOCYTES % (MANUAL) 3 % (3.4-9.0); NEUTROPHILS % (MANUAL) 83 % (40-74); PLATELET ESTIMATE ADEQUATE; PLATELET MORPHOLOGY COMMENT FEW LARGE; RBC MORPHOLOGY COMMENT NORMAL; TOXIC GRANULATION SLIGHT
[2024-11-14] MEDS: POTASSIUM CHLORIDE 10MEQ/100ML 200 ML IV ONE (12:37)
[2024-11-14] MEDS: MUPIROCIN 2% OINT 22 GM TUBE TOP SCH (20:09)
[2024-11-14] MEDS: BISACODYL 10 MG SUPP PR SCH (20:09)
[2024-11-15] VITALS (28 sets, daily range): BP systolic 124–151; BP diastolic 77–108; PULSE 57–82; RESP 14–28; TEMP 97.5–98; O2SAT 91–97
[2024-11-15] MEDS: AMIODARONE 900MG 500 ML IV ONE (01:07)
[2024-11-15 06:50] LABS: BASOPHILS # (AUTO) 0.1 (0.0-0.1); BASOPHILS % 0.5 % (0.0-1.0); EOSINOPHILS # (AUTO) 0.1 (0.0-0.4); EOSINOPHILS % 1.1 % (0.0-6.0); HEMATOCRIT 37.8 % (38.2-49.6); HEMOGLOBIN 12.5 g/dL (14.0-18.0); LYMPHOCYTES # (AUTO) 3.3 (1.0-3.2); MEAN CORPUSCULAR HEMOGLOBIN 32.1 pg (28-32); MEAN CORPUSCULAR HGB CONC 33.1 g/dL (31-35); MEAN CORPUSCULAR VOLUME 97.2 fL (81-99); MONOCYTES # (AUTO) 0.7 (0.2-0.8); MONOCYTES % 5.9 % (4.4-11.3); NEUTROPHILS # (AUTO) 8.1 (2.1-6.9); NEUTROPHILS % 64.1 % (38.7-80.0); PLATELET COUNT 247 x10e3/uL (140-360); RED BLOOD COUNT 3.89 x10e6/uL (4.3-5.7); RED CELL DISTRIBUTION WIDTH 13.3 % (11.7-14.4)
[2024-11-15 07:28] LABS: ALBUMIN 2.2 g/dL (3.5-5.0); ALBUMIN/GLOBULIN RATIO 0.6 (0.8-2.0); ANION GAP 13.1 mmol/L (8-16); BILIRUBIN,TOTAL 0.5 mg/dL (0.2-1.2); CALCIUM 8.2 mg/dL (8.4-10.2); CREATININE, SERUM 0.81 mg/dL (0.72-1.25); TOTAL PROTEIN 5.7 g/dL (6.5-8.1)
[2024-11-15 07:33] LABS: POTASSIUM 3.1 mmol/L (3.5-5.1)
[2024-11-15] MEDS: ENOXAPARIN SOD INJ 40 MG/0.4 ML SYR SC SCH (08:39)
[2024-11-15] MEDS: POTASSIUM CHLORIDE 20MEQ/100ML 100 ML IV PRN (08:39)
[2024-11-15] MEDS: LIDOCAINE 4% PATCH TP SCH (11:34)
[2024-11-16] VITALS (16 sets, daily range): BP systolic 137–163; BP diastolic 80–106; PULSE 56–76; RESP 15–25; TEMP 97.6–98.3; O2SAT 93–98
[2024-11-16 06:39] LABS: BASOPHILS % 0.4 % (0.0-1.0); EOSINOPHILS # (AUTO) 0.3 (0.0-0.4); EOSINOPHILS % 2.8 % (0.0-6.0); HEMATOCRIT 39.5 % (38.2-49.6); HEMOGLOBIN 12.7 g/dL (14.0-18.0); LYMPHOCYTES % 28.4 % (18.0-39.1); MEAN CORPUSCULAR HEMOGLOBIN 32.5 pg (28-32); MEAN CORPUSCULAR HGB CONC 32.2 g/dL (31-35); MONOCYTES # (AUTO) 0.7 (0.2-0.8); MONOCYTES % 6.3 % (4.4-11.3); NEUTROPHILS % 57.9 % (38.7-80.0); PLATELET COUNT 268 x10e3/uL (140-360); RED BLOOD COUNT 3.91 x10e6/uL (4.3-5.7); RED CELL DISTRIBUTION WIDTH 13.2 % (11.7-14.4); WHITE BLOOD COUNT 10.38 x10e3/uL (4.8-10.8)
[2024-11-16 07:02] LABS: ALBUMIN/GLOBULIN RATIO 0.6 (0.8-2.0); ANION GAP 12.2 mmol/L (8-16); BILIRUBIN,TOTAL 0.5 mg/dL (0.2-1.2); CALCIUM 8.1 mg/dL (8.4-10.2); CREATININE, SERUM 0.75 mg/dL (0.72-1.25); MAGNESIUM 1.6 MG/DL (1.3-2.1); TOTAL PROTEIN 5.4 g/dL (6.5-8.1)
[2024-11-16 07:03] LABS: POTASSIUM 3.2 mmol/L (3.5-5.1)
[2024-11-16] MEDS ORDERED: HYDROMORPHONE 1MG/1ML INJ IV PRN (16:45)
[2024-11-16] MEDS: AMIODARONE HCL 200 MG TAB PO SCH (21:14)
[2024-11-16] MEDS: HYDROCODONE/APAP 7.5MG-325MG 1 EA TAB PO PRN (21:24)
[2024-11-16] MEDS: LORAZEPAM INJ 2 MG/ML VIAL IV PRN (21:24)
[2024-11-17] VITALS (21 sets, daily range): BP systolic 129–169; BP diastolic 80–104; PULSE 58–85; RESP 13–25; TEMP 97.8–98.6; O2SAT 87–97
[2024-11-17] MEDS: MAGNESIUM SULFATE 2GM/50ML 50 ML IV ONE (05:20)
[2024-11-17 05:58] LABS: BASOPHILS # (AUTO) 0.1 (0.0-0.1); BASOPHILS % 0.9 % (0.0-1.0); EOSINOPHILS # (AUTO) 0.3 (0.0-0.4); EOSINOPHILS % 3.3 % (0.0-6.0); HEMATOCRIT 38.2 % (38.2-49.6); HEMOGLOBIN 12.3 g/dL (14.0-18.0); LYMPHOCYTES # (AUTO) 2.9 (1.0-3.2); LYMPHOCYTES % 27.7 % (18.0-39.1); MEAN CORPUSCULAR HEMOGLOBIN 32.6 pg (28-32); MEAN CORPUSCULAR HGB CONC 32.2 g/dL (31-35); MEAN CORPUSCULAR VOLUME 101.3 fL (81-99); MONOCYTES # (AUTO) 0.6 (0.2-0.8); MONOCYTES % 6.1 % (4.4-11.3); NEUTROPHILS % 58.1 % (38.7-80.0); PLATELET COUNT 269 x10e3/uL (140-360); RED BLOOD COUNT 3.77 x10e6/uL (4.3-5.7); RED CELL DISTRIBUTION WIDTH 13.2 % (11.7-14.4); WHITE BLOOD COUNT 10.38 x10e3/uL (4.8-10.8)
[2024-11-17 06:18] LABS: ALBUMIN 2.1 g/dL (3.5-5.0); ALBUMIN/GLOBULIN RATIO 0.7 (0.8-2.0); ANION GAP 12.3 mmol/L (8-16); BILIRUBIN,TOTAL 0.4 mg/dL (0.2-1.2); CREATININE, SERUM 0.77 mg/dL (0.72-1.25); POTASSIUM 3.3 mmol/L (3.5-5.1); TOTAL PROTEIN 5.2 g/dL (6.5-8.1)
[2024-11-18] VITALS (23 sets, daily range): BP systolic 127–166; BP diastolic 67–118; PULSE 53–80; RESP 12–29; TEMP 98.2–98.3; O2SAT 93–99
[2024-11-18] MEDS ORDERED: AMIODARONE HCL200 MG PO (12:42)
[2024-11-18] MEDS ORDERED: ASPIRIN81 MG PO (13:29)
== END 2024-11-18 14:50 | disposition home health service (06) | DRG 853 ==
LOC: ER 10:13 → ERHOLD 13:09 → ICU 14:12
PROVIDERS: ADMIT Internal Medicine; ATTEND Internal Medicine
PROC: 02HV33Z Insertion of Infusion Device into Superior Vena Cava, Percutaneous Approach (ICD-10-PCS; principal; 2024-11-11)
PROC: 3E0333Z Introduction of Anti-inflammatory into Peripheral Vein, Percutaneous Approach (ICD-10-PCS; 2024-11-11)
PROC: 0DTF0ZZ Resection of Right Large Intestine, Open Approach (ICD-10-PCS; 2024-11-12)
PROC: 0WJG4ZZ Inspection of Peritoneal Cavity, Percutaneous Endoscopic Approach (ICD-10-PCS; 2024-11-12)
PROC: 0DQV0ZZ Repair Mesentery, Open Approach (ICD-10-PCS; 2024-11-12)
DX: A41.9 Sepsis, unspecified organism (principal); K35.32 Acute appendicitis with perforation, localized peritonitis, and gangrene, without abscess; E87.21 Acute metabolic acidosis; N17.9 Acute kidney failure, unspecified; R65.20 Severe sepsis without septic shock; I48.91 Unspecified atrial fibrillation; I10 Essential (primary) hypertension; E87.6 Hypokalemia; K21.9 Gastro-esophageal reflux disease without esophagitis; E66.9 Obesity, unspecified; Z68.34 Body mass index [BMI] 34.0-34.9, adult; Z91.040 Latex allergy status; Z88.5 Allergy status to narcotic agent; Z91.048 Other nonmedicinal substance allergy status; Z87.891 Personal history of nicotine dependence; Z53.31 Laparoscopic surgical procedure converted to open procedure
CPT/HCPCS: 36415; 36569; 71045; 74177; 80048; 80053; 81001; 82550; 83605; 83690; 83735; 83880; 84443; 84484; 85025; 85610; 85730; 87040; 87086; 88307; 93005; 94640; 94799; 99252; 99284; C1766; J1171; J1650; J2003; J2060; J2270; J2405; J2470; J2543; J3475; J3480; J7030; Q9967